=== PATIENT | female | born 1965 | race Caucasian/White ===

== ENCOUNTER 2022-01-18 07:34 | Emergency (ER) | payer SELFPAY ==
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
[2022-01-18] MEDS ORDERED: ASPIRIN 81 MG CHEWABLE TABLET ONE (08:38)
[2022-01-18] MEDS ORDERED: NA CHLORIDE 0.9% 1,000 ML ONE (08:39)
[2022-01-18] MEDS ORDERED: NA CHLORIDE 0.9% 500 ML ONE (08:39)
[2022-01-18 08:42] LABS: Lymphocytes % 21.2 % (15.3-44.8); MCV 88.1 fL (80-100); MPV 7.1 fL (7.6-11.3); RBC Red Blood Cell Count 3.29 M/uL (3.86-4.86)
[2022-01-18 08:53] LABS: Urine Blood Negative (Negative); Urine Glucose Negative (Negative); Urine Protein Negative (Negative); Urine Specific Gravity 1.015 (1.005-1.030)
[2022-01-18 08:57] LABS: Protime INR 1.04
[2022-01-18 09:05] LABS: Albumin 2.3 g/dL (3.4-5.0); Bilirubin Direct 0.2 mg/dL (0-0.2); Bilirubin Total 0.7 mg/dL (0.2-1.0); Potassium 3.1 mmol/L (3.5-5.1); Protein, Total 6.2 g/dL (6.4-8.2); Troponin High Sensitivity 7.5 pg/mL (<58.9)
[2022-01-18 09:06] LABS: Magnesium 1.3 mg/dL (1.8-2.4)
[2022-01-18 09:24] LABS: SARS-CoV-2 Antigen Rapid Res Negative (Negative)
[2022-01-18 09:28] LABS: Blood Morphology Comment NOTED (NOT SEEN); Platelet Estimate ADEQ; White Blood Cell Scan OK (OK)
[2022-01-18 09:29] LABS: Anisocytosis 3+; Poikilocytosis SLIGHT; Polychromasia SLIGHT
[2022-01-18 09:40] LABS: Urine Blood Negative (Negative); Urine Glucose Negative (Negative); Urine Protein Negative (Negative); Urine Specific Gravity 1.015 (1.005-1.030); Urine pH 6.5 (5.0-7.0)
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
[2022-01-18] MEDS ORDERED: ONDANSETRON 4 MG/2 ML VIAL ONE (11:26)
[2022-01-18] MEDS ORDERED: MORPHINE 4 MG/ML SYR ONE (11:26)
[2022-01-18] MEDS ORDERED: Magnesium Sulfate 2gm IVPB 2 G/50 ML BAG IV ONE (11:33)
[2022-01-18] MEDS ORDERED: POTASSIUM 25 MEQ EFFERV TAB ONE (11:33)
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
--- NOTE | 2022-01-18 14:28 | EKG ---
Test Date: 2022-01-18 Test Time: 07:52:21 [employer] Inspector: SALLY MEASUREMENT RESULTS: Intervals: Rate: 88 SD: 176 QRSD: 78 QT: 372 QTc: 450 [place]: P: 48 SD: 176 QRS: 45 T: 115 INTERPRETIVE STATEMENTS: Normal sinus rhythm Low voltage QRS Cannot rule out Anterior infarct, age undetermined ST & T wave abnormality, consider lateral ischemia Abnormal ECG Compared to ECG 12/30/2012 17:26:27 Low QRS voltage now present Myocardial infarct finding now present ST (T wave) deviation now present Possible ischemia now present Electronically Signed On 01-18-22 14:27:26 CDT by Morgan Ponce
--- NOTE | 2022-01-18 14:43 | RAD REPORT ---
EXAM DESCRIPTION: USExtrem Venous W Compress Bil01/18/2022 9:31 am CLINICAL HISTORY: Leg pain COMPARISON: none FINDINGS: The common femoral, superficial femoral, popliteal and posterior tibial veins bilaterally are compressible and demonstrate augmentation. Doppler demonstrates good flow. Grayscale, color and spectral analysis performed on all vessels IMPRESSION: No evidence of deep venous thrombosis involving either lower extremity.
[2022-01-18 16:18] VITALS: BP 123/92; TEMP 97.4; O2SAT 97
== END 2022-01-18 15:09 | disposition short-term general hospital (02) ==
LOC: ER 07:34
PROC: 05HP33Z Insertion of Infusion Device into Right External Jugular Vein, Percutaneous Approach (ICD-10-PCS; principal; 2022-01-18)
DX: R07.1 Chest pain on breathing (principal); J90 Pleural effusion, not elsewhere classified; R06.00 Dyspnea, unspecified; S22.2 Fracture of sternum; S22.009A Unspecified fracture of unspecified thoracic vertebra, initial encounter for closed fracture; S32.029S Unspecified fracture of second lumbar vertebra, sequela; S30.1XXA Contusion of abdominal wall, initial encounter; D64.9 Anemia, unspecified; V89.2XXA Person injured in unspecified motor-vehicle accident, traffic, initial encounter
CPT/HCPCS: 36415; 36680; 70450; 71045; 71275; 72125; 74177; 80048; 80076; 81003; 83605; 83690; 83735; 83880; 84484; 85025; 85379; 85610; 87040; 87086; 87088; 87811; 93005; 93970; 99285; J2405; J3475; J7030; J7040; Q9967